=== PATIENT | female | born 1950 | race Caucasian/White ===

== ENCOUNTER 2017-01-22 13:22 | Emergency (ER) | payer OTHER ==
[2017-01-22 13:42] VITALS: TEMP 99.1
[2017-01-22 14:29] LABS: BASOPHILS % (AUTO) 1 % (0-3); EOSINOPHILS % (AUTO) 1 % (0-9); HEMATOCRIT 35 % (35-47); MEAN CORPUSCULAR HGB CONC 36.7 gm/dl (32.0-36.0); MEAN CORPUSCULAR VOLUME 96 fL (81-99); MONOCYTES % (AUTO) 10.2 % (0-12); NEUTROPHILS % (AUTO) 51.5 % (37-80)
[2017-01-22 14:34] LABS: ALBUMIN 3.3 gm/dl (3.4-5.0); CALCIUM 8.7 mg/dl (8.5-10.1)
[2017-01-22 14:43] LABS: ANISOCYTOSIS SLIGHT AMT
[2017-01-22 14:44] LABS: POTASSIUM 2.6 mMol/L (3.5-5.1)
[2017-01-22] MEDS: POTASSIUM CHLORIDE 10 MEQ TER PO SCH ×2 (14:58→18:30)
[2017-01-22] MEDS ORDERED: POTASSIUM CHLORIDE 10 MEQ TER ONE ×2 (14:58→18:33)
[2017-01-22 15:29] LABS: APPEARANCE,URINE Slightly Cloudy; BILIRUBIN,URINE NEGATIVE (NEGATIVE); COLOR,URINE Yellow; GLUCOSE, URINE (UA) NEGATIVE (NEGATIVE); KETONES,URINE NEGATIVE (NEGATIVE); LEUKOCYTE ESTERASE ,URINE 1+ (NEGATIVE); NITRATE,URINE POSITIVE (NEGATIVE); OCCULT BLOOD,URINE NEGATIVE (NEG-TRACE); PH,URINE 6.5; UROBILINOGEN,URINE 0.2 (0.2-1.0 EU)
[2017-01-22 15:35] LABS: AMPHETAMINES NEGATIVE (NEGATIVE); METHADONE NEGATIVE (NEGATIVE); OPIATES(OP13) NEGATIVE (NEGATIVE); OXYCODONE(OXY) NEGATIVE (NEGATIVE); PROPOXYPHENE(PPX) NEGATIVE (NEGATIVE); TRICYCLIC ANTIDEPRESSANTS NEGATIVE (NEGATIVE)
[2017-01-22 15:49] LABS: RBC,URINE 0-2 (0-3AV/HPF); WBC,URINE 100-150 (0-5AV/HPF)
[2017-01-22 16:59] VITALS: BP 144/85; PULSE 98; RESP 18; O2SAT 98
== END 2017-01-22 18:54 | disposition other institution (70) | DRG 897 ==
LOC: ED 13:22
DX: F10.220 Alcohol dependence with intoxication, uncomplicated (principal)
CPT/HCPCS: 36415; 80053; 80305; 80307; 81001; 85025; 99283

== ENCOUNTER 2017-02-20 14:36 | Emergency (ER) | payer OTHER ==
[2017-02-20 14:51] VITALS: TEMP 98.8; O2SAT 96
[2017-02-20 15:05] LABS: BASOPHILS % (AUTO) 2 % (0-3); EOSINOPHILS % (AUTO) 2 % (0-9); HEMATOCRIT 38 % (35-47); MEAN CORPUSCULAR HGB CONC 35.8 gm/dl (32.0-36.0); MEAN CORPUSCULAR VOLUME 95 fL (81-99); MONOCYTES % (AUTO) 8.2 % (0-12); NEUTROPHILS % (AUTO) 54.5 % (37-80)
[2017-02-20] MEDS ORDERED: POTASSIUM CHLORIDE 10 MEQ TER PO ONE (15:15)
[2017-02-20] MEDS: DEXTROSE/SALINE 0.9% 1,000 ML IV SCH ×2 (15:15→17:17)
[2017-02-20] MEDS ORDERED: POTASSIUM CHLORIDE 2 MEQ/ML SOL IV SCH (15:15)
[2017-02-20 15:16] LABS: ALBUMIN 3.2 gm/dl (3.4-5.0); CALCIUM 8.5 mg/dl (8.5-10.1)
[2017-02-20 15:17] LABS: POTASSIUM 2.4 mMol/L (3.5-5.1)
[2017-02-20] MEDS ORDERED: SODIUM CHLORIDE/KCL 20MEQ 1,000 ML IV ONE ×2 (15:19→16:17)
[2017-02-20] MEDS ORDERED: POTASSIUM CHLORIDE 10 MEQ TER ONE (16:05)
[2017-02-20 16:42] LABS: APPEARANCE,URINE Cloudy; BILIRUBIN,URINE NEGATIVE (NEGATIVE); COLOR,URINE Light yellow; GLUCOSE, URINE (UA) NEGATIVE (NEGATIVE); KETONES,URINE NEGATIVE (NEGATIVE); LEUKOCYTE ESTERASE ,URINE 2+ (NEGATIVE); NITRATE,URINE NEGATIVE (NEGATIVE); OCCULT BLOOD,URINE TRACE INTACT (NEG-TRACE); UROBILINOGEN,URINE 0.2 (0.2-1.0 EU)
[2017-02-20 16:55] LABS: RBC,URINE NEGATIVE (0-3AV/HPF)
[2017-02-20 16:56] LABS: AMPHETAMINES NEGATIVE (NEGATIVE); METHADONE NEGATIVE (NEGATIVE); OPIATES(OP13) NEGATIVE (NEGATIVE); OXYCODONE(OXY) NEGATIVE (NEGATIVE); PROPOXYPHENE(PPX) NEGATIVE (NEGATIVE); TRICYCLIC ANTIDEPRESSANTS NEGATIVE (NEGATIVE); WBC,URINE 25-35 (0-5AV/HPF)
[2017-02-20] MEDS ORDERED: ACETAMINOPHEN 500 MG 500 MG TAB PO ONE (17:22)
[2017-02-20] MEDS ORDERED: ACETAMINOPHEN 500 MG 500 MG TAB ONE (17:24)
[2017-02-20 18:12] VITALS: PULSE 115; RESP 23
[2017-02-20 19:55] VITALS: BP 173/82
== END 2017-02-20 20:27 | DRG 897 ==
LOC: ED 14:36
DX: F10.229 Alcohol dependence with intoxication, unspecified (principal); Y90.1 Blood alcohol level of 20-39 mg/100 ml
CPT/HCPCS: 36415; 80053; 80305; 80307; 81001; 82150; 84132; 85025; 96365; 96366; 99284; 99285

== ENCOUNTER 2017-03-03 18:37 | Emergency (ER) | payer OTHER ==
[2017-03-03] MEDS ORDERED: SODIUM CHLORIDE 0.9% 500 ML 500 ML IV ONE (19:03)
[2017-03-03] MEDS ORDERED: LORAZEPAM 2 MG/ML SOL ONE (19:20)
[2017-03-03] MEDS ORDERED: LORAZEPAM 2 MG/ML SOL IV ONE (19:21)
[2017-03-03 19:25] LABS: BASOPHILS % (AUTO) 0 % (0-3); EOSINOPHILS % (AUTO) 0 % (0-9); HEMATOCRIT 45 % (35-47); MEAN CORPUSCULAR HGB CONC 35.2 gm/dl (32.0-36.0); MEAN CORPUSCULAR VOLUME 95 fL (81-99); MONOCYTES % (AUTO) 5.1 % (0-12); NEUTROPHILS % (AUTO) 89.5 % (37-80)
[2017-03-03 19:35] LABS: ALBUMIN 3.9 gm/dl (3.4-5.0); ALT 32 IU/L (14-63); CALCIUM 9.9 mg/dl (8.5-10.1); GLOM FILT RATE 38 mL/min (>60); SODIUM 137 mMol/L (136-145)
[2017-03-03 19:37] LABS: POTASSIUM 2.7 mMol/L (3.5-5.1)
[2017-03-03] MEDS ORDERED: POTASSIUM CHLORIDE 2 MEQ/ML SOL IV ONE (19:57)
[2017-03-03] MEDS ORDERED: LIDOCAINE HCL 1% MPF SOL ONE (19:58)
[2017-03-03 20:03] LABS: APPEARANCE,URINE Slightly Cloudy; BILIRUBIN,URINE NEGATIVE (NEGATIVE); COLOR,URINE Yellow; GLUCOSE, URINE (UA) NEGATIVE (NEGATIVE); KETONES,URINE NEGATIVE (NEGATIVE); LEUKOCYTE ESTERASE ,URINE NEGATIVE (NEGATIVE); NITRATE,URINE NEGATIVE (NEGATIVE); OCCULT BLOOD,URINE 2+ (NEG-TRACE); PH,URINE 6.5; UROBILINOGEN,URINE 0.2 (0.2-1.0 EU)
[2017-03-03] MEDS ORDERED: LABETALOL HYDROCHLORIDE 5 MG/ML SOL IV ONE ×2 (20:05→20:06)
[2017-03-03] MEDS ORDERED: POTASSIUM CHLORIDE 2 MEQ/ML 60 MEQ, LIDOCAINE HCL 1% MDV 2 ML in SODIUM CHLORIDE 0.9% 1... IV ONE (20:07)
[2017-03-03 20:11] LABS: AMPHETAMINES NEGATIVE (NEGATIVE); METHADONE NEGATIVE (NEGATIVE); OPIATES(OP13) NEGATIVE (NEGATIVE); OXYCODONE(OXY) NEGATIVE (NEGATIVE); PROPOXYPHENE(PPX) NEGATIVE (NEGATIVE); RBC,URINE 0-2 (0-3AV/HPF); TRICYCLIC ANTIDEPRESSANTS NEGATIVE (NEGATIVE)
[2017-03-03] MEDS ORDERED: ROCURONIUM BROMIDE 10 MG/ML SOL IV ONE ×3 (20:14→20:30)
[2017-03-03] MEDS ORDERED: FENTANYL 100MCG/2ML SOL ONE (20:14)
[2017-03-03] MEDS ORDERED: ETOMIDATE 2 MG/ML SOL IV ONE ×2 (20:14→20:30)
[2017-03-03 20:17] VITALS: TEMP 99.8
[2017-03-03] MEDS ORDERED: LEVETIRACETAM (PREMIX) 1 GM 1 GM/100 ML SOL IV ONE ×2 (20:17→20:20)
[2017-03-03] MEDS ORDERED: FENTANYL 100MCG/2ML SOL IV ONE (20:30)
[2017-03-03] MEDS ORDERED: MIDAZOLAM 2 MG/2 ML SOL ONE (20:35)
[2017-03-03] MEDS ORDERED: MIDAZOLAM 2 MG/2 ML SOL IV ONE (20:36)
[2017-03-03 20:46] VITALS: BP 190/92; PULSE 112; RESP 26; O2SAT 100
== END 2017-03-03 20:50 | disposition short-term general hospital (02) | DRG 66 ==
LOC: ED 18:37
DX: I61.8 Other nontraumatic intracerebral hemorrhage (principal); R56.9 Unspecified convulsions; F10.929 Alcohol use, unspecified with intoxication, unspecified
CPT/HCPCS: 31500; 36415; 70450; 71010; 80053; 80305; 80307; 81001; 85025; 99291; J2060; J2250; J3010; J3480; J1953; J2001

== ENCOUNTER 2017-05-07 14:19 | Inpatient (IN) | payer OTHER ==
[2017-05-07] MEDS ORDERED: ONDANSETRON HCL 4 MG/2 ML SOL IV ONE (14:43)
[2017-05-07] MEDS ORDERED: SODIUM CHLORIDE 0.9% 1000 ML SOL IV SCH (14:45)
[2017-05-07 15:21] LABS: BASOPHILS % (AUTO) 1 % (0-3); EOSINOPHILS % (AUTO) 0 % (0-9); HEMATOCRIT 36 % (35-47); MEAN CORPUSCULAR HGB CONC 35.9 gm/dl (32.0-36.0); MEAN CORPUSCULAR VOLUME 92 fL (81-99); MONOCYTES % (AUTO) 12.6 % (0-12); NEUTROPHILS % (AUTO) 78.4 % (37-80)
[2017-05-07] MEDS ORDERED: ONDANSETRON HCL 4 MG/2 ML SOL ONE (15:26)
[2017-05-07 15:35] LABS: ALBUMIN 3.8 gm/dl (3.4-5.0); ALT 21 IU/L (14-63); CALCIUM 9.1 mg/dl (8.5-10.1); GLOM FILT RATE 40 mL/min (>60)
[2017-05-07 15:38] LABS: POTASSIUM 1.7 mMol/L (3.5-5.1); SODIUM 118 mMol/L (136-145)
[2017-05-07] MEDS ORDERED: POTASSIUM CHLORIDE 10 MEQ TER PO ONE (15:43)
[2017-05-07] MEDS ORDERED: POTASSIUM CHLORIDE 2 MEQ/ML SOL IV ONE ×3 (15:47→16:53)
[2017-05-07] MEDS ORDERED: POTASSIUM CHLORIDE 10 MEQ TER ONE (15:56)
[2017-05-07] MEDS ORDERED: LORAZEPAM 2 MG/ML SOL IV ONE (15:59)
[2017-05-07] MEDS ORDERED: FOLIC ACID 1 MG TAB PO ONE (16:00)
[2017-05-07] MEDS ORDERED: THIAMINE 100 MG/ML 100 MG/ML SOL IV ONE (16:00)
[2017-05-07] MEDS ORDERED: THIAMINE 100 MG/ML 100 MG/ML SOL ONE (16:12)
[2017-05-07] MEDS ORDERED: FOLIC ACID 1 MG TAB ONE (16:12)
[2017-05-07] MEDS ORDERED: LORAZEPAM 2 MG/ML SOL ONE (16:13)
[2017-05-07] MEDS ORDERED: POTASSIUM CHLORIDE 2 MEQ/ML 60 MEQ, LIDOCAINE HCL 1% MDV 2 ML in SODIUM CHLORIDE 0.9% 1... IV ONE (16:50)
[2017-05-07] MEDS ORDERED: LIDOCAINE HCL 1% MPF SOL ONE (17:20)
[2017-05-07] MEDS ORDERED: LORAZEPAM 0.5 MG TAB PO PRN (17:35)
[2017-05-07] MEDS ORDERED: ALUMINUM/MAGNESIUM 30 ML SUS PO PRN (17:35)
[2017-05-07] MEDS ORDERED: ONDANSETRON HCL 4 MG/2 ML SOL IV PRN (17:35)
[2017-05-07] MEDS: SODIUM CHLORIDE 0.9% FLUSH 10 ML SOL IV SCH ×2 (17:45→22:26)
[2017-05-07 18:22] LABS: APPEARANCE,URINE Slightly Cloudy; BILIRUBIN,URINE NEGATIVE (NEGATIVE); COLOR,URINE Yellow; GLUCOSE, URINE (UA) NEGATIVE (NEGATIVE); KETONES,URINE NEGATIVE (NEGATIVE); LEUKOCYTE ESTERASE ,URINE 1+ (NEGATIVE); NITRATE,URINE POSITIVE (NEGATIVE); OCCULT BLOOD,URINE TRACE LYSED (NEG-TRACE); PH,URINE 6.5; UROBILINOGEN,URINE 0.2 (0.2-1.0 EU)
[2017-05-07 18:58] LABS: AMPHETAMINES NEGATIVE (NEGATIVE); METHADONE NEGATIVE (NEGATIVE); OPIATES(OP13) NEGATIVE (NEGATIVE); OXYCODONE(OXY) NEGATIVE (NEGATIVE); PROPOXYPHENE(PPX) NEGATIVE (NEGATIVE); RBC,URINE 0-1 (0-3AV/HPF); TRICYCLIC ANTIDEPRESSANTS NEGATIVE (NEGATIVE)
[2017-05-07] MEDS: CIPROFLOXACIN HCL 500 MG TAB PO SCH (22:25)
[2017-05-08] MEDS ORDERED: LIDOCAINE HCL 1% MPF SOL ONE (01:15)
[2017-05-08] MEDS ORDERED: POTASSIUM CHLORIDE 2 MEQ/ML SOL IV ONE (01:19)
[2017-05-08] MEDS ORDERED: LIDOCAINE HCL IV SCH (01:30)
[2017-05-08] MEDS ORDERED: [UNRECOGNIZED DRUG - OTHER] IV SCH (01:30)
[2017-05-08] MEDS ORDERED: POTASSIUM CHLORIDE IV SCH (01:30)
[2017-05-08] MEDS: SODIUM CHLORIDE 0.9% FLUSH 10 ML SOL IV SCH ×3 (01:48→18:27)
[2017-05-08 07:15] LABS: BASOPHILS % (AUTO) 1 % (0-3); EOSINOPHILS % (AUTO) 1 % (0-9); HEMATOCRIT 26 % (35-47); MEAN CORPUSCULAR HGB CONC 35.3 gm/dl (32.0-36.0); MEAN CORPUSCULAR VOLUME 93 fL (81-99); MONOCYTES % (AUTO) 18.9 % (0-12); NEUTROPHILS % (AUTO) 61.4 % (37-80)
[2017-05-08 07:30] LABS: ALBUMIN 2.8 gm/dl (3.4-5.0); CALCIUM 7.3 mg/dl (8.5-10.1); POTASSIUM 3.7 mMol/L (3.5-5.1)
[2017-05-08] MEDS: MULTIVITAMIN2 1 EA TAB PO SCH (09:25)
[2017-05-08] MEDS: POTASSIUM CHLORIDE 10 MEQ TER PO SCH ×2 (09:25→21:47)
[2017-05-08] MEDS: [UNRECOGNIZED DRUG - OTHER] INH SCH ×2 (09:26→21:48)
[2017-05-08] MEDS: FORMOTEROL FUMARATE INH SCH ×2 (09:26→21:48)
[2017-05-08] MEDS: CIPROFLOXACIN HCL 500 MG TAB PO SCH ×2 (09:26→21:47)
[2017-05-08] MEDS: FOLIC ACID 1 MG TAB PO SCH (09:26)
[2017-05-08] MEDS: THIAMINE 100 MG TAB PO SCH (09:26)
[2017-05-08] MEDS ORDERED: METOPROLOL SUCCINATE 50 MG TER PO SCH (09:30)
[2017-05-08] MEDS: TIOTROPIUM BROMIDE 18 MCG CAP INH SCH (09:32)
[2017-05-09 07:11] LABS: CALCIUM 7.7 mg/dl (8.5-10.1); POTASSIUM 3.6 mMol/L (3.5-5.1)
[2017-05-09 07:12] LABS: BASOPHILS % (AUTO) 1 % (0-3); EOSINOPHILS % (AUTO) 2 % (0-9); HEMATOCRIT 25 % (35-47); MEAN CORPUSCULAR HGB CONC 35.2 gm/dl (32.0-36.0); MEAN CORPUSCULAR VOLUME 95 fL (81-99); MONOCYTES % (AUTO) 13.2 % (0-12); NEUTROPHILS % (AUTO) 62.1 % (37-80)
[2017-05-09] MEDS: SODIUM CHLORIDE 0.9% FLUSH 10 ML SOL IV SCH ×4 (08:19→17:38)
[2017-05-09] MEDS: POTASSIUM CHLORIDE 10 MEQ TER PO SCH ×2 (09:11→20:22)
[2017-05-09] MEDS: [UNRECOGNIZED DRUG - OTHER] INH SCH ×2 (09:11→20:21)
[2017-05-09] MEDS: MULTIVITAMIN2 1 EA TAB PO SCH (09:11)
[2017-05-09] MEDS: FOLIC ACID 1 MG TAB PO SCH (09:11)
[2017-05-09] MEDS: FORMOTEROL FUMARATE INH SCH ×2 (09:11→20:21)
[2017-05-09] MEDS: CIPROFLOXACIN HCL 500 MG TAB PO SCH ×2 (09:11→20:21)
[2017-05-09] MEDS: TIOTROPIUM BROMIDE 18 MCG CAP INH SCH (09:11)
[2017-05-09] MEDS: THIAMINE 100 MG TAB PO SCH (09:12)
[2017-05-09] MEDS: METOPROLOL SUCCINATE 50 MG ER TAB PO SCH (09:23)
[2017-05-09 10:30] LABS: ABO O; ANTIBODY SCREEN Negative; RH TYPE Positive; UNIT TYPE O POSITIVE
[2017-05-09 14:51] LABS: UNIT TYPE O POSITIVE
[2017-05-10] MEDS: SODIUM CHLORIDE 0.9% FLUSH 10 ML SOL IV SCH ×2 (04:55→11:12)
[2017-05-10 07:34] LABS: BASOPHILS % (AUTO) 1 % (0-3); EOSINOPHILS % (AUTO) 1 % (0-9); HEMATOCRIT 33 % (35-47); MEAN CORPUSCULAR HGB CONC 35.1 gm/dl (32.0-36.0); MEAN CORPUSCULAR VOLUME 92 fL (81-99); MONOCYTES % (AUTO) 13.1 % (0-12); NEUTROPHILS % (AUTO) 67.1 % (37-80)
[2017-05-10 07:41] LABS: POTASSIUM 4.2 mMol/L (3.5-5.1)
[2017-05-10] MEDS: POTASSIUM CHLORIDE 10 MEQ TER PO SCH (08:42)
[2017-05-10] MEDS: MULTIVITAMIN2 1 EA TAB PO SCH (08:42)
[2017-05-10] MEDS: CIPROFLOXACIN HCL 500 MG TAB PO SCH (08:42)
[2017-05-10] MEDS: THIAMINE 100 MG TAB PO SCH (08:43)
[2017-05-10] MEDS: FOLIC ACID 1 MG TAB PO SCH (08:43)
[2017-05-10] MEDS: METOPROLOL SUCCINATE 50 MG ER TAB PO SCH (08:43)
[2017-05-10] MEDS: [UNRECOGNIZED DRUG - OTHER] INH SCH (08:44)
[2017-05-10] MEDS: FORMOTEROL FUMARATE INH SCH (08:44)
[2017-05-10] MEDS: TIOTROPIUM BROMIDE 18 MCG CAP INH SCH (08:45)
[2017-05-10 09:38] VITALS: BP 123/76; PULSE 79; RESP 18; TEMP 97.8; O2SAT 97
[2017-05-10] MEDS ORDERED: INFLUENZA HIGH DOSE VACCINE 0.5 ML SUS IM ONE (11:35)
[2017-05-10] MEDS ORDERED: PNEUMOC 13-VAL CONJ-DIP CRM/PF 0.5 ML SYRINGE IM ONE (11:35)
== END 2017-05-10 13:10 | disposition home or self-care (01) | DRG 897 ==
LOC: ED 14:19 → ACUTE CARE 17:00
PROVIDERS: ADMIT Family Medicine; ATTEND Family Medicine
DX: F10.220 Alcohol dependence with intoxication, uncomplicated (principal); I45.81 Long QT syndrome; E87.1 Hypo-osmolality and hyponatremia; K70.30 Alcoholic cirrhosis of liver without ascites; K92.1 Melena; N39.0 Urinary tract infection, site not specified; E87.6 Hypokalemia; D64.9 Anemia, unspecified
CPT/HCPCS: 36415; 70450; 72125; 80048; 80053; 80305; 80307; 81001; 82272; 83735; 84100; 84132; 85025; 85610; 86850; 86900; 86901; 86920; 87077; 87088; 87186; 90662; 93005; 93012; 96365; 96374; 96375; 99070; 99238; 99284; 99285; J2060; J2405; J3480; G0008; J2001

== ENCOUNTER 2017-07-09 14:03 | Emergency (ER) | payer OTHER ==
[2017-07-09 14:12] VITALS: TEMP 98.5
[2017-07-09 14:36] LABS: BASOPHILS % (AUTO) 2 % (0-3); EOSINOPHILS % (AUTO) 2 % (0-9); HEMATOCRIT 43 % (35-47); MEAN CORPUSCULAR HGB CONC 34.5 gm/dl (32.0-36.0); MEAN CORPUSCULAR VOLUME 91 fL (81-99); MONOCYTES % (AUTO) 11.7 % (0-12); NEUTROPHILS % (AUTO) 46.8 % (37-80)
[2017-07-09 15:01] LABS: CALCIUM 8.8 mg/dl (8.5-10.1); THYROID STIMULATING HORMONE 1.154 uIU/ml (0.358-3.740)
[2017-07-09 15:02] LABS: POTASSIUM 2.5 mMol/L (3.5-5.1)
[2017-07-09] MEDS ORDERED: POTASSIUM CHLORIDE 10 MEQ TER ONE ×2 (15:35→18:09)
[2017-07-09] MEDS: POTASSIUM CHLORIDE 10 MEQ TER PO SCH ×2 (15:40→18:10)
[2017-07-09 15:52] LABS: APPEARANCE,URINE Clear; BILIRUBIN,URINE NEGATIVE (NEGATIVE); COLOR,URINE Yellow; GLUCOSE, URINE (UA) NEGATIVE (NEGATIVE); KETONES,URINE NEGATIVE (NEGATIVE); LEUKOCYTE ESTERASE ,URINE NEGATIVE (NEGATIVE); NITRATE,URINE NEGATIVE (NEGATIVE); OCCULT BLOOD,URINE NEGATIVE (NEG-TRACE); UROBILINOGEN,URINE 0.2 (0.2-1.0 EU)
[2017-07-09 15:59] LABS: AMPHETAMINES NEGATIVE (NEGATIVE); METHADONE NEGATIVE (NEGATIVE); OPIATES(OP13) NEGATIVE (NEGATIVE); OXYCODONE(OXY) NEGATIVE (NEGATIVE); PROPOXYPHENE(PPX) NEGATIVE (NEGATIVE); TRICYCLIC ANTIDEPRESSANTS NEGATIVE (NEGATIVE)
[2017-07-09 16:01] LABS: RBC,URINE 0-1 (0-3AV/HPF); WBC,URINE 0-2 (0-5AV/HPF)
[2017-07-09 16:49] VITALS: O2SAT 97
[2017-07-09 17:02] VITALS: BP 134/82; PULSE 84; RESP 14
== END 2017-07-09 18:25 | DRG 897 ==
LOC: ED 14:03
DX: F10.20 Alcohol dependence, uncomplicated (principal); Y90.6 Blood alcohol level of 120-199 mg/100 ml
CPT/HCPCS: 36415; 80048; 80305; 80307; 81001; 83735; 84443; 85025; 99283; 99284; A9270-GY